=== PATIENT | female | born 1950 | race Caucasian/White ===

== ENCOUNTER 2021-12-22 14:20 | Outpatient (CLI) | payer MEDICARE | END 2021-12-22 14:21 | disposition home or self-care (01) | LOC: CSHMAMMO 14:20 | PROVIDERS: ATTEND Family Medicine | DX: Z12.31 Encounter for screening mammogram for malignant neoplasm of breast (principal); Z98.82 Breast implant status | CPT/HCPCS: 77063; 77067 ==

== ENCOUNTER 2022-12-27 12:43 | Outpatient (CLI) | payer MEDICARE | END 2022-12-27 12:44 | disposition home or self-care (01) | LOC: CSHMAMMO 12:43 | PROVIDERS: ATTEND Family Medicine | DX: Z12.31 Encounter for screening mammogram for malignant neoplasm of breast (principal); Z13.820 Encounter for screening for osteoporosis; M81.0 Age-related osteoporosis without current pathological fracture; M85.88 Other specified disorders of bone density and structure, other site; Z98.82 Breast implant status | CPT/HCPCS: 77063; 77067; 77080 ==

== ENCOUNTER 2024-03-24 14:58 | Outpatient (CLI) | payer MEDICARE | END 2024-03-24 14:59 | disposition home or self-care (01) | LOC: CSHMAMMO 14:58 | PROVIDERS: ATTEND Family Medicine | DX: M81.0 Age-related osteoporosis without current pathological fracture (principal); M85.89 Other specified disorders of bone density and structure, multiple sites | CPT/HCPCS: 77080 ==

== ENCOUNTER 2025-01-01 12:32 | Outpatient (CLI) | payer MEDICARE | END 2025-01-01 12:33 | disposition home or self-care (01) | LOC: CSHMAMMO 12:32 | PROVIDERS: ATTEND Family Medicine | DX: Z12.31 Encounter for screening mammogram for malignant neoplasm of breast (principal); Z98.82 Breast implant status | CPT/HCPCS: 77063; 77067 ==